=== PATIENT | female | born 1955 | race Caucasian/White ===

== ENCOUNTER 2019-03-05 07:29 | Outpatient (CLI) | payer OTHER | END 2019-03-05 07:43 | disposition home or self-care (01) | LOC: SONOGRAMA 07:29 → MAMO-SONO 07:45 | DX: R10.84 Generalized abdominal pain (principal) ==

== ENCOUNTER 2019-10-29 14:01 | Outpatient (CLI) | payer OTHER | END 2019-10-29 14:03 | disposition home or self-care (01) | LOC: RAD 14:01 | DX: M54.5 Low back pain (principal) ==

== ENCOUNTER 2020-09-08 08:27 | Outpatient (CLI) | payer OTHER | END 2020-09-08 08:43 | disposition home or self-care (01) | LOC: SONOGRAMA 08:27 → MAMO-SONO 08:45 | PROVIDERS: ATTEND Internal Medicine Gastroenterology | DX: R10.84 Generalized abdominal pain (principal) ==

== ENCOUNTER 2021-08-22 11:56 | Outpatient (CLI) | payer OTHER | END 2021-08-22 12:05 | disposition home or self-care (01) | LOC: RAD 11:56 | PROVIDERS: ATTEND Orthopaedic Surgery | DX: M25.511 Pain in right shoulder (principal); M25.562 Pain in left knee ==

== ENCOUNTER → 2022-01-31 | Outpatient (CLI) | payer OTHER | END | disposition home or self-care (01) | LOC: RAD 10:21 | PROVIDERS: ATTEND Ophthalmology | DX: Z98.42 Cataract extraction status, left eye (principal); H25.012 Cortical age-related cataract, left eye ==

== ENCOUNTER → 2022-09-04 | Outpatient (CLI) | payer OTHER | END | disposition home or self-care (01) | LOC: NUCLEAR 08:53 | PROVIDERS: ATTEND Internal Medicine Cardiovascular Disease | DX: Z86.73 Personal history of transient ischemic attack (TIA), and cerebral infarction without residual deficits (principal) ==